=== PATIENT | female | born 1970 | race Caucasian/White ===

== ENCOUNTER 2021-08-30 11:14 | Outpatient (CLI) | payer OTHER, SELFPAY ==
--- NOTE | ~2021-08-30 | MMUS_ITS ---
EXAMINATION: MM diagnostic fly LT w [place], US breast LT limited HISTORY: Rule out TECHNIQUE: Full field ML, MLO and craniocaudal and spot lateral craniocaudal compression 3-D tomosynt hesis images of the left breast were performed and synthetic 2-D images were generated. CAD analysis was submitted and interpreted. High resolution upper outer and lower-outer quadrant left breast ultra sound was performed. COMPARISON: 08/11/2021 [facility] bilateral screening mammogram BREAST PARENCHYMAL COMPOSITION: There are scattered areas of fibroglandular density. FINDINGS: MAMMOGRAPHIC FINDINGS: There is an ill-defined approximately 7 x 12 mm asymmetric opacity in the lower outer aspect of the l eft breast. ULTRASOUND: At 3:00 there is an approximately 3 mm cyst. No suspicious mass is noted otherwise. IMPRESSION: 1. Probable benign mammographic asymmetry 2. 6 month diagnostic left mammogram follow-up is recommended BI-RADS category 3, probably benign findings. Reviewed, dictated and finalized at location A. IMPRESSION: 1. Probable benign mammographic asymmetry 2. 6 month diagnostic left mammogram follow-up is recommended BI-RADS category 3, probably benign findings.
== END 2021-08-30 11:15 | disposition home or self-care (01) ==
LOC: ANHIMG 11:17
PROVIDERS: Visit Provider Internal Medicine
DX: N60.02 Solitary cyst of left breast (principal)
CPT/HCPCS: 76642; 77061; 77065; G0279